=== PATIENT | male | born 2005 ===

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

== ENCOUNTER 2024-01-29 04:20 | Day surgery (SDC) | payer OTHER ==
[~2024-01-29 04:20] MED LIST changes: +ALBUTEROL2.5 MG/3 M IH; +OXYC1TAB9 PO; +PROAIR RESPICL90 MCG IH
[2024-01-29] MEDS ORDERED: levoFLOXacin IN DEXTROSE 5 % 5 MG/ML PIGGYBAG IV ONE (08:15)
[2024-01-29] MEDS ORDERED: METRONIDAZOLE/SODIUM CHLORIDE 500 MG/100 ML PIGGYBACK IV ONE (08:15)
[2024-01-29] MEDS ORDERED: LIDOCAINE HCL 1%/EPINEPHRINE 20ML VIAL IJ ONE (08:30)
[2024-01-29] MEDS ORDERED: DIBUCAINE 30 GM TUBE RECTAL ONE (08:30)
[2024-01-29] MEDS ORDERED: BUPIVACAINE HCL/PF 0.25% 30ML VIAL InF ONE (08:30)
[2024-01-29] MEDS ORDERED: HEMOSTATIC MATRIX 1 KIT KIT TOP ONE ×2 (08:30→09:00)
[2024-01-29] MEDS ORDERED: OXYCODONE HCL5 MG PO (12:12)
[2024-01-29] MEDS ORDERED: TAMSULOSIN HCL 0.4 MG CAP PO ONE (12:15)
[2024-01-29] MEDS ORDERED: OXYC1TAB9 PO (12:58)
== END 2024-01-29 14:30 | disposition home or self-care (01) ==
LOC: CIR.AMB 04:20
PROVIDERS: ATTEND Surgery
DX: K60.30 Anal fistula, unspecified (principal); K62.89 Other specified diseases of anus and rectum; Z88.6 Allergy status to analgesic agent; Z88.1 Allergy status to other antibiotic agents; Z88.0 Allergy status to penicillin; J45.909 Unspecified asthma, uncomplicated; E03.8 Other specified hypothyroidism